=== PATIENT | male | born 1950 | race Caucasian/White ===

== ENCOUNTER → 2017-12-02 | Outpatient (CLI) | payer OTHER ==
[~2017-12-02] MED LIST: ADVAIR 250-501 EACH INH; ALKA-SELTZER P1 EA12 PO; CALCIUM 600 +1 EAC1 PO; COMBIVENT; DEPO-TESTO200 MG/1 M IM; FIBER LAXATIVE500 MG PO; FISH OIL 1,0001 EAC5 PO; FOLIC ACID 40400 MC1 PO; HYDROCODONE-AP1 EAC6 PO; IBUPROFEN 200200 M1 PO; KEFLEX500 MG PO; LISINOPRIL10 MG PO; MONTELUKAST SOD10 MG PO; NAPROSYN500 MG PO; NEOSPORIN28 GM TP; NEURONTIN 300300 M1 PO; NORCO 5-325 TA1 EACH PO; PRAVASTATIN SOD40 MG PO; TRIPLE ANTIBIOT28 G2 TP; VIT B 12; VIT D
== END ==
LOC: M.ULTRA 11-25 11:30
DX: N64.4 Mastodynia (principal)

== ENCOUNTER → 2018-05-08 | Outpatient (CLI) | payer OTHER | LOC: M.RAD 09:40 | DX: N63.41 Unspecified lump in right breast, subareolar (principal) ==

== ENCOUNTER → 2018-07-13 | Outpatient (CLI) | payer OTHER | LOC: M.RAD 16:00 | DX: M47.894 Other spondylosis, thoracic region (principal); Z68.23 Body mass index [BMI] 23.0-23.9, adult ==

== ENCOUNTER → 2018-08-22 | Outpatient (CLI) | payer OTHER ==
[2018-08-22 08:20] LABS: CREATININE 1.1 mg/dL (0.6-1.3)
--- NOTE | 2018-08-30 08:04 | PF ---
[address] [address] PULMONARY FUNCTION REPORT Name: BRYAN GONZALEZ Room: [facility]#: [id number] Admission: 08/22/18 Attend Phys: Shoaib Gillette MD Discharge: Date of : 46 Report #: [id number] THIS REPORT FOR: //name// CC: Shoaib Gillette DATE OF SERVICE: 08/22/2018 REQUESTING PHYSICIAN: Shoaib Gillette MD. Spirometry was done. FEV1 2.43, which was 73% of predicted. Vital capacity 3.30, which was 74% of predicted. The FEV1/FVC ratio was 74%. Mid flows are mildly decreased. There was no significant change seen after inhaled bronchodilator. Lung volumes by plethysmography reveal low normal total lung capacity of 5.62, which was 79% of predicted. Diffusion capacity is normal. IMPRESSION: Studies are consistent with a very mild obstructive process. No significant change seen after inhaled bronchodilator. Lung volumes are low normal range. Cannot rule out early restrictive process. <ELECTRONICALLY SIGNED> By: Luisa Harley MD 08/30/18 [id number] Harley MD /nt
== END ==
LOC: M.LAB 07-19 11:53
PROVIDERS: Internal Medicine
DX: I25.10 Atherosclerotic heart disease of native coronary artery without angina pectoris (principal); J44.9 Chronic obstructive pulmonary disease, unspecified; M17.0 Bilateral primary osteoarthritis of knee; Z68.23 Body mass index [BMI] 23.0-23.9, adult

== ENCOUNTER → 2019-03-08 | Outpatient (CLI) | payer OTHER | LOC: M.RAD 02-23 11:03 | DX: M50.123 Cervical disc disorder at C6-C7 level with radiculopathy (principal); M48.02 Spinal stenosis, cervical region; M47.22 Other spondylosis with radiculopathy, cervical region; Z88.1 Allergy status to other antibiotic agents; F17.210 Nicotine dependence, cigarettes, uncomplicated; I10 Essential (primary) hypertension; Z79.899 Other long term (current) drug therapy ==

== ENCOUNTER → 2019-10-05 | Outpatient (CLI) | payer OTHER | LOC: M.CT 11:30 | DX: R91.1 Solitary pulmonary nodule (principal); J02.9 Acute pharyngitis, unspecified; I10 Essential (primary) hypertension; J44.9 Chronic obstructive pulmonary disease, unspecified; E29.1 Testicular hypofunction; M47.22 Other spondylosis with radiculopathy, cervical region; I25.10 Atherosclerotic heart disease of native coronary artery without angina pectoris; I70.0 Atherosclerosis of aorta; M47.815 Spondylosis without myelopathy or radiculopathy, thoracolumbar region; K76.89 Other specified diseases of liver; K80.20 Calculus of gallbladder without cholecystitis without obstruction ==

== ENCOUNTER → 2020-11-03 | Outpatient (CLI) | payer MEDICARE, OTHER | LOC: M.ULTRA 10-30 16:24 → M.RAD 09:30 → M.ULTRA 09:49 | PROVIDERS: ATTEND Internal Medicine | DX: J44.9 Chronic obstructive pulmonary disease, unspecified (principal); E78.5 Hyperlipidemia, unspecified; R16.0 Hepatomegaly, not elsewhere classified; K82.4 Cholesterolosis of gallbladder; K76.89 Other specified diseases of liver ==

== ENCOUNTER → 2021-05-08 | Outpatient (CLI) | payer OTHER | LOC: M.RAD 12:17 | PROVIDERS: ATTEND Internal Medicine | DX: J98.4 Other disorders of lung (principal); J44.9 Chronic obstructive pulmonary disease, unspecified; R05 Cough ==

== ENCOUNTER → 2021-06-08 | Outpatient (CLI) | payer OTHER | LOC: M.ULTRA 12:33 | PROVIDERS: ATTEND Internal Medicine | DX: N50.811 Right testicular pain (principal); N50.812 Left testicular pain ==

== ENCOUNTER → 2021-07-02 | Outpatient (CLI) | payer OTHER | LOC: M.CT 09:56 | PROVIDERS: ATTEND Internal Medicine | DX: R91.1 Solitary pulmonary nodule (principal); D73.4 Cyst of spleen; J84.9 Interstitial pulmonary disease, unspecified ==

== ENCOUNTER → 2021-07-14 | Outpatient (CLI) | payer OTHER | LOC: M.ULTRA 09:00 | PROVIDERS: ATTEND Nurse Practitioner Adult Health | DX: K80.20 Calculus of gallbladder without cholecystitis without obstruction (principal); D41.4 Neoplasm of uncertain behavior of bladder; K76.0 Fatty (change of) liver, not elsewhere classified; K82.1 Hydrops of gallbladder ==

== ENCOUNTER → 2021-09-29 | Outpatient (CLI) | payer OTHER ==
--- NOTE | 2021-09-30 16:28 | CARDNUC ---
[place] [address] CARDIAC NUCLEAR IMAGING REPORT Name: BRYAN GONZALEZ Room: [facility]#: [id number] Admission: 09/29/21 Attend Phys: Oli Medel, Discharge: Date of : 46 Date of Service: 09/30/21 1627 Report #: [id number] THIS REPORT FOR: cc: Florin Thomas MD, Meng MD Liston, Michael J. MD [facility] ~ APPROVED REPORT Imaging Protocol: Rest Tc-99m/Stress Tc-99m 1 day Study performed: 09/29/2021 07:45:00 Indication: Pre-Operative CV evaluation Patient Location: Out-Patient Stress Tech: TATIANA MARTINEZ Stress Nurse: Cindy Licea RN NM Tech:SHIRA Tejeda Ht: 5 ft 10 in Wt: 157 lbs BSA: 1.88 m2 BMI: 22.52 Medical History Medical History: CAD non obstructive, COPD, HTN, Hyperlipidemia Medications: asa-81, atorvastatin, lisinopril Allergies: ciprofloxacin Cardiac Risk Factors: Age, Current Smoker, FHX of CAD, HTN, Hyperlipidemia Exercise History: Sedentary Resting Data Rest SPECT myocardial perfusion imaging was performed in supine position 30 minutes following the intravenous injection of 10.5 mCi of Tc-99m Sestamibi. Time of rest injection: 0800 Date: 09/29/2021 The images were gated to evaluate regional wall motion and calculate left ventricular ejection fraction. Administration Route: IV Administration Site: Right AC Pharmacologic Stress Pharmacologic stress test was performed by injecting Regadenoson 0.4 mg IV push over 10-15 seconds immediately followed by the intravenous injection of 31.2 mCi of Tc-99m Sestamibi. Time of stress injection: 934 Date: 09/29/2021 [place] [address] CARDIAC NUCLEAR IMAGING REPORT Name: BRYAN GONZALEZ Room: [facility] Dieudonne#: [id number] Admission: 09/29/21 Attend Phys: Oli Medel, Discharge: Date of : 46 Date of Service: 09/30/21 1627 Report #: [id number] Administration Route: IV Administration Site: Right AC Gated Stress SPECT was performed 40 minutes after stress injection. The images were gated to evaluate regional wall motion and calculate left ventricular ejection fraction. Prone imaging was performed. Stress Test Details Stress Test: Pharmacologic stress testing performed using 0.4 mg of regadenoson per 5 mL given IV over 10 seconds. Reason for pharmacologic stress test: physical limitation. HR Max Heart Rate (APMHR): 148 bpm Resting HR: 63 bpm Target HR (85% APMHR): 125 bpm Max HR Achieved: 100 bpm % of APMHR: 67 Recovery HR: 87 bpm BP Resting BP: 154/99 mmHg Max BP: 170/80 mmHg Recovery BP: 168/100 mmHg ECG Resting ECG: Sinus Rhythm Stress ECG: Sinus Rhythm ST Change: None Arrhythmia: None Recovery ECG: Sinus Rhythm Recovery ST Change: None Recovery Arrhythmia: None Clinical Reason for Termination: Completed protocol The patient tolerated Lexiscan infusion without significant cardiac symptoms. Nurse Comments generalized weakness, cannot walk on treadmill Stress ECG Conclusion The baseline twelve-lead EKG shows sinus rhythm without significant ST segment abnormality. EKGs obtained during and post Lexiscan infusion show sinus rhythm with no significant ST segment changes when compared to baseline. There were no stress[place] [address] CARDIAC NUCLEAR IMAGING REPORT Name: BRYAN GONZALEZ Room: [facility]#: [id number] Admission: 09/29/21 Attend Phys: Oli Medel, Discharge: Date of : 46 Date of Service: 09/30/21 1627 Report #: [id number] Study Quality Study: Good Study Data At rest, the left ventricular ejection fraction was 55%.. Post stress, the left ventricular ejection was 68%.. TID = 1.07. Perfusion Perfusion images obtained in the supine position at rest show mild photopenia of the inferior wall that is not apparent in post-rest images consistent with diaphragmatic attenuation artifact. No other significant defects were identified. Wall Motion Normal left ventricular wall motion. Nuclear Conclusion ECG Findings: negative for ischemia Clinical Findings: negative for ischemia Nuclear Findings: negative for ischemia Exercise Capacity: not assessed Left Ventricular Function: normal Risk Study: low Perfusion images show no defect to suggest ischemia or infarct. Left ventricular systolic function is normal on gated studies. This is a low risk study. <Conclusion> The baseline twelve-lead EKG shows sinus rhythm without significant ST segment abnormality. EKGs obtained during and post Lexiscan infusion show sinus rhythm with no significant ST segment changes when compared to baseline. There were no stress-induced arrhythmias. <ELECTRONICALLY SIGNED> By: Oli Medel MD, FACC 09/30/21 1627 [id number] Oli Medel MD, FACC /INF
== END ==
LOC: M.CRD 09-10 12:36 → M.NUC 07:36
PROVIDERS: ATTEND Internal Medicine Cardiovascular Disease
DX: I25.119 Atherosclerotic heart disease of native coronary artery with unspecified angina pectoris (principal)

== ENCOUNTER → 2021-10-26 | Outpatient (CLI) | payer OTHER ==
--- NOTE | 2021-10-26 14:15 | 2DMMODE ---
[place] [address] 2 D/M-MODE ECHOCARDIOGRAM Name: BRYAN GONZALEZ Room: [facility]#: [id number] Admission: 10/26/21 Attend Phys: Oli Medel, Discharge: Date of : 46 Date of Service: 10/26/21 1415 Report #: [id number] THIS REPORT FOR: cc: Florin Thomas MD, Meng MD Holkins,Raheel Vanessa MD [facility] ~ APPROVED REPORT Study performed: 10/26/2021 14:13:37 EXAM: Comprehensive 2D, Doppler, and color-flow Echocardiogram Patient Location: Out-Patient BSA: 1.82 HR: 66 bpm Other Information Study Quality: Good Indications Dyspnea CAD 2D Dimensions IVSd: 12.37 (7-11mm) LVOT Diam: 20.12 (18-24mm) LVDd: 37.55 mm PWd: 9.97 (7-11mm) Ascending Ao: 33.50 (22-36mm) LVDs: 23.12 (25-40mm) Aortic Root: 32.66 mm Volumes Left Atrial Volume (Systole) LA ESV Index: 12.20 mL/m2 Aortic Valve AoV Peak Lyle.: 0.97 m/s AO Peak Gr.: 3.78 mmHg LVOT Max P.01 mmHg AO Mean Gr.: 1.83 mmHg LVOT Mean P.62 mmHg LVOT Max V: 1.00 m/s AO V2 VTI: 19.39 cm LVOT Mean V: 0.57 m/s BOSSMAN (VTI): 3.61 cm2 LVOT V1 VTI: 22.03 [place] [address] 2 D/M-MODE ECHOCARDIOGRAM Name: BRYAN GONZALEZ Room: [facility]#: [id number] Admission: 10/26/21 Attend Phys: Oli Medel, Discharge: Date of : 46 Date of Service: 10/26/21 1415 Report #: [id number] E/A Ratio: 0.84 MV Decel. Time: 190.62 ms MV E Max Lyle.: 0.70 m/s MV PHT: 55.28 ms MVA (PHT): 3.98 cm2 TDI E/Lateral E': 8.75 E/Medial E': 7.78 Medial E' Lyle.: 0.09 m/s Lateral E' Lyle.: 0.08 m/s Pulmonary Valve PV Peak Lyle.: 0.81 m/s PV Peak Gr.: 2.60 mmHg Left Ventricle The left ventricle is normal size. There is normal LV segmental wall motion. There is normal left ventricular wall thickness. Left ventricular systolic function is normal. The left ventricular ejection fraction is within the normal range. LVEF is 60%. Grade I - abnormal relaxation pattern. Right Ventricle The right ventricle is normal size. The right ventricular systolic function is normal. Atria The left atrium size is normal. The right atrium size is normal. Aortic Valve Mild aortic valve sclerosis. Trace aortic regurgitation. There is no aortic valvular stenosis. Mitral Valve The mitral valve is normal in structure. There is no mitral valve regurgitation noted. No evidence of mitral valve stenosis. Tricuspid Valve The tricuspid valve is normal in structure. There is no tricuspid valve regurgitation noted. Pulmonic Valve The pulmonary valve is normal in structure. There is no pulmonic valvular regurgitation. [place] [address] 2 D/M-MODE ECHOCARDIOGRAM Name: BRYAN GONZALEZ Room: [facility]#: [id number] Admission: 10/26/21 Attend Phys: Oli Medel, Discharge: Date of : 46 Date of Service: 10/26/21 1415 Report #: [id number] The aortic root is normal in size. IVC is normal in size and collapses >50% with inspiration. Pericardium There is no pericardial effusion. <Conclusion> The left ventricle is normal size. There is normal left ventricular wall thickness. Left ventricular systolic function is normal. The left ventricular ejection fraction is within the normal range. LVEF is 60%. Grade I - abnormal relaxation pattern. The right ventricle is normal size. The left atrium size is normal. Mild aortic valve sclerosis. Trace aortic regurgitation. There is no aortic valvular stenosis. The mitral valve is normal in structure. The tricuspid valve is normal in structure. IVC is normal in size and collapses >50% with inspiration. There is no pericardial effusion. There is normal LV segmental wall motion. <ELECTRONICALLY SIGNED> By: Raheel Swanson MD, [facility] 10/26/21 1415 14 141 Raheel Swanson MD, FACC /INF
== END ==
LOC: M.CRD 12:30
PROVIDERS: ATTEND Internal Medicine Cardiovascular Disease
DX: I35.8 Other nonrheumatic aortic valve disorders (principal); I25.119 Atherosclerotic heart disease of native coronary artery with unspecified angina pectoris